=== PATIENT | female | born 1995 | race African-American/Black ===

== ENCOUNTER 2019-10-28 12:47 | Emergency (ER) | payer MEDICAID, SELFPAY ==
--- NOTE | ~2019-10-28 | US_ITS ---
EXAMINATION: US OB <= 14 weeks fetus DATE: 10/28/2019 14:44 INDICATION: Stomach cramps. Dizziness and vomiting. TECHNIQUE: Real-time transabdominal pelvic ultrasound was performed. COMPARISON: None. FINDINGS: The uterus measures 11.4 x 8.7 x 7.8 cm. There is an intrauterine gestational sac. The crown r ump length measures 4.9 cm, which correlates with an estimated gestational age of 11 weeks and 5 day( s) (+/-) 1 week(s) and 0 day(s). heart motion is identified measuring 165 beats per minute (bpm ) by M-mode Doppler. There are 2 small subchorionic hematomas. The right ovary measures 3.1 x 3.0 x 3 .6 cm. The left ovary is not visualized. There is no free fluid in the pelvis. IMPRESSION: 1. Single living intrauterine gestation with estimated date of delivery of 05/13/2020. 2. Two small subchorionic hematomas. Reviewed, dictated and finalized at location A. IMPRESSION: 1. Single living intrauterine gestation with estimated date of delivery of . 2. Two small subchorionic hematomas.
[2019-10-28 13:20] LABS: Basophils Percent Auto 0.4 % (0.2-1.2); Eosinophils Absolute Auto 0.1 K/mm3 (0-0.3); Eosinophils Percent Auto 0.8 % (0-4.4); Hematocrit 34.4 % (37.0-47.0); Hemoglobin 11.5 g/dL (12.0-15.0); Immature Granulocyte Absolute 0.02 K/mm3 (0.00-0.031); Immature Granulocyte Percent A 0.2 % (0-0.5); Lymphocytes Absolute Auto 2.52 K/mm3 (0.9-3.2); Lymphocytes Percent Auto 29.8 % (18.3-44.2); Mean Corpuscular HGB Conc 33.4 g/dl (32-36); Mean Corpuscular Hemoglobin 30.3 pg (26-34); Mean Corpuscular Volume 90.8 fl (80-100); Mean Platelet Volume 10.5 fl (7.4-10.4); Monocytes Absolute Auto 0.6 K/mm3 (0.1-0.6); Monocytes Percent Auto 6.5 % (2.6-8.5); Neutrophils Absolute Auto 5.3 K/mm3 (1.3-6.7); Neutrophils Percent Auto 62.3 % (45.5-73.1); Platelet Count Result 263 k/mm3 (150-375); Red Blood Count 3.79 M/mm3 (4.2-5.4); Red Cell Distribution Width 12.4 % (11.5-14.5); White Blood Count 8.5 K/mm3 (4.5-10.0)
[2019-10-28 13:37] LABS: Alanine Aminotransferase 8 U/L (4-35); Albumin Level 3.7 g/dL (3.5-5.1); Alkaline Phosphatase 41 U/L (38-126); Aspartate Amino Transferase 15 U/L (14-36); Bilirubin,Total 0.2 mg/dL (0.2-1.3); Blood Urea Nitrogen 8 mg/dL (7-17); Calcium 9.1 mg/dL (8.4-10.2); Carbon Dioxide 22 mmol/L (22-30); Chloride 106 mmol/L (98-107); Estimated Glomerular Filt Rate > 60; Glucose 101 mg/dL (65-105); Potassium 3.7 mmol/L (3.4-5.0); Sodium 134 mmol/L (137-145)
[2019-10-28 13:57] VITALS: BP 112/90; PULSE 67; RESP 17; TEMP 37.1; O2SAT 100
[2019-10-28] MEDS: SODIUM CHLORIDE 0.9% IV 1,000 ML 999 ML IV CONT ×2 (14:05)
[2019-10-28 14:28] VITALS: BP 94/49; PULSE 69
[2019-10-28 14:29] VITALS: BP 97/50; BP 97/67; PULSE 61; PULSE 65
[2019-10-28 15:20] LABS: Add Urine Microscopic? YES; Appearance Urine Clear (Clear); Bacteria Urine Trace /hpf; Bilirubin Urine Negative (Negative); Blood Urine Negative (Negative); Color Urine Yellow (Yellow); Glucose Urine UA Negative (Negative); Ketones Urine Negative (Negative); Leukocyte Esterase Ur Negative LEU/UL (Negative); Mucus Urine Heavy /lpf; Nitrate Urine Negative (Negative); Protein Urine Negative (Negative); RBC Urine 0-2 /hpf (0-2); Specific Grav Ur 1.025 (1.001-1.035); Squamous Epithelial Cell Urine Few /hpf (Few); Urobilinogen Urine Negative mg/dL (<2.0)
--- NOTE | 2019-10-28 15:52 | ED.GENADULT ---
HPI - General Adult General Chief complaint: Environmental Exposure <Navin Huertas PA-C - Last Filed: 10/28/19 15:59> Stated complaint: dizzy <Navin Huertas PA-C - Last Filed: 10/28/19 15:59> Time Seen by Provider: 10/28/19 12:49 <Navin Huertas PA-C - Last Filed: 10/28/19 15:59> Source: patient <Navin Huertas PA-C - Last Filed: 10/28/19 15:59> Mode of arrival: ambulatory <Navin Huertas PA-C - Last Filed: 10/28/19 15:59> Limitations: no limitations <Navin Huertas PA-C - Last Filed: 10/28/19 15:59> History of Present Illness HPI narrative: Patient is a 24-year-old female who presents to emergency department for evaluation of dizziness that began at work today patient works in a warehouse notes that she became hot nauseous had an episode of emesis patient notes she approximately 14 weeks per last menstrual period G5, P3. Patient has not seen her manager [facility] yet has appointment scheduled in 1 week. Patient notes some light cramping of the abdomen. Patient denies recent sickness sick contacts. Patient notes she has been having some intermittent nausea during this . Patient notes that today was the first day she had emesis. Patient denies vaginal bleeding or discharge <Navin Huertas PA-C - Last Filed: 10/28/19 15:59> Review of Systems Review of Systems: All systems reviewed & are unremarkable except as noted in HPI and below <Navin Huertas PA-C - Last Filed: 10/28/19 15:59> PMFSH Social History Social History: Social History (Updated 10/28/19 @ 15:57 by Navin Huertas PA-C) Smoking status: Never smoker Gender identity (if verbalized by the patient): Female <Navin Huertas PA-C - Last Filed: 10/28/19 15:59> Exam Narrative: Exam Narrative: GENERAL: Well-appearing, well-nourished, and in no acute distress. HEAD: Normocephalic, atraumatic. EYES: PERRLA and EOMI. ENT: Nares clear, no rhinorrhea or epistaxis. Mucous membranes moist. CHEST: Clear to auscultation. No respiratory distress. No wheezes rales or rhonchi HEART: Regular rate and rhythm. No murmur heard. Normal peripheral pulses. ABDOMEN: Soft, tender, nondistended EXTREMITIES: Normal range of motion. No edema. SKIN: Warm, dry, no rash. NEURO: No focal deficits. Alert and oriented x3. Cranial nerves II through XII grossly intact PSYCH: Normal mood and affect. <Navin Huertas PA-C - Last Filed: 10/28/19 15:59> Course Course Emergency Course: Patient in the room in no distress aware of case findings treatment plan and diagnosis agreeing to follow-up as directed <Navin Huertas PA-C - Last Filed: 10/28/19 15:59> Vital Signs Vital signs: Vital Signs Temperature 98.7 F 10/28/19 13:57 Pulse Rate 67 10/28/19 13:57 Respiratory Rate 17 10/28/19 13:57 Blood Pressure 112/90 10/28/19 13:57 Pulse Oximetry 100 10/28/19 13:57 Temperature 98.7 F 10/28/19 13:57 Pulse Rate 62 10/28/19 16:12 Respiratory Rate 15 10/28/19 16:12 Blood Pressure 136/72 10/28/19 16:12 Pulse Oximetry 100 10/28/19 16:12 <Navin Huertas PA-C - Last Filed: 10/28/19 15:59> Vital Signs Temperature 98.7 F 10/28/19 13:57 Pulse Rate 67 10/28/19 13:57 Respiratory Rate 17 10/28/19 13:57 Blood Pressure 112/90 10/28/19 13:57 Pulse Oximetry 100 10/28/19 13:57 Temperature 98.7 F 10/28/19 13:57 Pulse Rate 62 10/28/19 16:12 Respiratory Rate 15 10/28/19 16:12 Blood Pressure 136/72 10/28/19 16:12 Pulse Oximetry 100 10/28/19 16:12 <Jodi Malloy MD - Last Filed: 10/28/19 16:52> Medical Decision Making MDM Narrative Medical decision making narrative: Patient in the room with no high risk changes in the blood work felt appropriate for outpatient reevaluation afebrile nontoxic-appearing no distress has follow-up in 1 week made aware of the ultrasound findings noting that her symptoms have resolve
[2019-10-28 16:12] VITALS: BP 136/72; PULSE 62; RESP 15; O2SAT 100
== END 2019-10-28 16:13 | disposition home or self-care (01) ==
PROVIDERS: Emergency Medicine Emergency Medical Services; Emergency Provider General Practice
DX: O26.891 Other specified pregnancy related conditions, first trimester (principal); R42 Dizziness and giddiness; R10.9 Unspecified abdominal pain; Z3A.11 11 weeks gestation of pregnancy
CPT/HCPCS: 36415; 76801; 80053; 81001; 84702; 85025; 96360; 99284; J7030